=== PATIENT | female | born 1960 | race Two or more races ===

== ENCOUNTER 2016-08-14 11:03 | Emergency (ER) | payer MEDICAID ==
[~2016-08-14] VITALS: Ht 154.9 cm; Wt 83.9 kg
--- NOTE | 2016-08-14 11:30 | NUR ---
BIB RA FROM HOME FOR HYPERGLYCEMIA, PATIENT IS VERBALLY RESPONSIVE, A/OX 4, PLACED IN MONITOR, NO OTHER MEDICAL COMPLAINTS, MD AT BEDSIDE UPON ARRIVAL, WILL CONTINUE TO MONITOR CLOSELY.
[2016-08-14] MEDS ORDERED: IV SET PRIMARY 1 EA INFUS.SET MC ONE ×2 (11:55→12:59)
[2016-08-14] MEDS ORDERED: IV NS 0.9% 1,000 ML ONE (11:55)
[2016-08-14 11:56] LABS: BASOPHILS % (AUTO) 0.6 % (0.0-2.0); EOSINOPHILS # (AUTO) 0.7 /CMM (0.0-0.7); EOSINOPHILS % (AUTO) 9.3 % (0.0-6.0); HEMATOCRIT 44 % (33-45); HEMOGLOBIN 14.4 g/dL (11.5-14.8); LYMPHOCYTES # (AUTO) 1.7 /CMM (0.8-4.8); LYMPHOCYTES % (AUTO) 21.9 % (20.0-44.0); MEAN CORPUSCULAR HEMOGLOBIN 27 PG (26.0-33.0); MEAN CORPUSCULAR HGB CONC 33 g/dl (31.0-36.0); MEAN CORPUSCULAR VOLUME 83 fL (82-100); MONOCYTES # (AUTO) 0.4 /CMM (0.1-1.30); MONOCYTES % (AUTO) 5.3 % (2.0-12.0); NEUTROPHILS # (AUTO) 4.9 /CMM (1.8-8.9); NEUTROPHILS % (AUTO) 62.9 % (43.0-81.0); PLATELET COUNT (AUTO) 219 /CMM (150-450); RDW COEFFICIENT OF VARIATION 12.8 (11.5-15.0); RED BLOOD CELL COUNT(AUTO) 5.32 MIL/uL (4.0-5.2); WHITE BLOOD COUNT (AUTO) 7.8 K/uL (4.3-11.0)
[2016-08-14] MEDS ORDERED: IV NS 0.9% 1,000 ML BAG IV ONE (12:00)
[2016-08-14 12:07] LABS: CALCIUM, SERUM 8.8 mg/dL (8.5-10.1); CREATININE 1.1 mg/dL (0.6-1.3); POTASSIUM 3.9 mmol/L (3.5-5.1)
[2016-08-14 12:19] LABS: INR 1.06 (0.87-1.13)
[2016-08-14 12:22] LABS: APPEARANCE,URINE Clear (CLEAR); BILIRUBIN,URINE Negative (NEGATIVE); BLOOD, URINE Negative Ery/uL (NEGATIVE); COLOR,URINE Yellow (YELLOW); KETONES,URINE 40 (NEGATIVE); LEUKOCYTE ESTERASE ,URINE Negative (NEGATIVE); NITRITE, URINE Negative (NEGATIVE); PROTEIN,URINE 30 mg/dl (NEGATIVE); UGLUCOSE >=1000 mg/dL (NEGATIVE); UROBILINOGEN,URINE 0.2 EU/dL (0.2)
[2016-08-14 12:28] LABS: BACTERIA,URINE None seen /HPF (None Seen); RBC,URINE 0-3 /HPF (0-2); SQUAMOUS EPITHELIAL CELL,UR Few /HPF (None Seen)
[2016-08-14] MEDS ORDERED: IV LR 1000 ML 1,000 ML IV ONE (12:36)
[2016-08-14] MEDS ORDERED: IV LR 1000 ML 1,000 ML ONE (12:59)
[2016-08-14] MEDS ORDERED: INSULIN REGULAR, HUMAN 100 UNIT/ML 10 ML VIAL ONE (12:59)
[2016-08-14] MEDS ORDERED: INSULN 70/30 ASP+PRT/ASP MIX 100 UNIT/ML CARTRIDGE SQ ONE (13:00)
--- NOTE | 2016-08-14 13:32 | NUR ---
INFORMED MD OF BLOOD SUGAR LEVEL
[2016-08-14] MEDS ORDERED: METOCLOPRAMIDE HCL 10 MG/2 ML VIAL ONE (13:43)
[2016-08-14] MEDS ORDERED: FAMOTIDINE (20 MG) 20 MG TABLET ONE (13:43)
[2016-08-14] MEDS ORDERED: MAG HYDROX/AL HYDROX/SIMETH 30 ML UDC ONE (13:44)
[2016-08-14] MEDS ORDERED: METOCLOPRAMIDE HCL 10 MG/2 ML VIAL IV ONE (14:00)
[2016-08-14] MEDS ORDERED: FAMOTIDINE (20 MG) 20 MG TABLET PO ONE (14:00)
[2016-08-14] MEDS ORDERED: MAG HYDROX/AL HYDROX/SIMETH 30 ML UDC PO ONE (14:00)
[2016-08-14 14:07] VITALS: BP 110/60
--- NOTE | 2016-08-14 14:07 | NUR ---
Patient discharged to home in stable condition. Written and verbal after care instructions given. Patient verbalizes understanding of instruction. IV removed. Catheter intact and site benign. Pressure and 4x4 applied to site. No bleeding noted. NAD NOTED UPON DISCHARGE
== END 2016-08-14 14:07 | disposition home or self-care (01) ==
LOC: ER 11:05
DX: E11.649 Type 2 diabetes mellitus with hypoglycemia without coma (principal); R53.1 Weakness
CPT/HCPCS: 36415; 71010-TC; 80048-TC; 81000-TC; 82962-TC; 84484-TC; 85025-TC; 85730-TC; A4606; J1815; J2765; J7030; J7120; Z7610

== ENCOUNTER 2022-06-28 20:15 | Inpatient (IN) | payer MEDICAID ==
[~2022-06-28] VITALS: Ht 162.6 cm; Wt 87.1 kg
[2022-06-29] VITALS: BP 143/47
--- NOTE | 2022-06-29 | NUR ---
ASSURANCE ASSISTANT INITIAL NOTE PT ARRIVED TO UNIT VIA STRETCHER, DIRECT ADMIT FROM ANNONA. PT ADMITTED FOR SEVERE SEPSIS SECONDARY TO CELLULITIS. PT MEDICAL HISTORY INCLUDES DM, CVA THAT OCCURRED WHEN PT WAS 22 YEARS OLD, KIDNEY DISEASE, AND CHOLECYSTECTOMY. PT IS A/O X4, CALM, COOPERATIVE. PT ON ROOM AIR WITH O2SAT OF 92%; PER PT DENIES, FEELING SOB, BREATHING NON-LABORED AND EQUAL, NO SIGNS OF RESP DISTRESS. PT ATTACHED TO EXTERNAL MONITOR, SR WITH BIGEMINY PVCS. SKIN ASSESSED; NOTED TO HAVE CELLULITIS ON BILATERAL ELBOWS, LEFT LEG, SACRUM, AND RIGHT BUTTOCKS; THE RIGHT BUTTOCKS APPEARS RED AND TENDER TO TOUCH. PICTURES TAKEN AND PLACED IN CHART. IV ACCESS ON LFA 20G, INTACT AND PATENT, FLUSHES EASILY WITH NO RESISTANCE. BELONGINGS CHECKED AND ACCOUNTED FOR. BED IN LOWEST POSITION, CALL LIGHT WITHIN REACH, SIDE RAILS UP X2. WILL INITIATE PLAN OF CARE.
[2022-06-29] MEDS ORDERED: ACETAMINOPHEN 325 MG TABLET PO PRN (01:00)
[2022-06-29] MEDS ORDERED: Z GUARD REMEDY 4 OZ OINT TP PRN (01:00)
[2022-06-29] MEDS ORDERED: ONDANSETRON HCL/PF 4 MG/2 ML VIAL IVP PRN (01:00)
[2022-06-29] MEDS ORDERED: DEXTROSE 50%-WATER 50 ML DISP.SYRIN IV PRN (01:00)
[2022-06-29] MEDS ORDERED: PIPERACILLIN /TAZOBACTAM 3.375 G in IV D5W 50 ML IV SCH ×2 (02:00→08:00)
[2022-06-29] MEDS: MORPHINE SULFATE INJ 2 MG/ML DISP.SYRIN IV PRN ×2 (02:13→15:05)
--- NOTE | 2022-06-29 02:14 | NUR ---
RN NOTE PT REPORTS OF 10/10 PAIN ON HER POSTERIOR RIGHT BUTTOCK THAT'S DESCRIBED ACHING. PT ADMINISTERED MORPHINE 2 MG. WILL MONITOR FOR EFFECTIVENESS.
[2022-06-29 02:18] LABS: BASOPHILS % (AUTO) 0.2 % (0.0-2.0); EOSINOPHILS % (AUTO) 1.5 % (0.0-6.0); HEMATOCRIT 35 % (33-45); LYMPHOCYTES # (AUTO) 2.6 K/uL (0.8-4.8); LYMPHOCYTES % (AUTO) 14.7 % (20.0-44.0); MEAN CORPUSCULAR HGB CONC 32 g/dl (31.0-36.0); MEAN CORPUSCULAR VOLUME 75 fL (82-100); MONOCYTES # (AUTO) 0.8 K/uL (0.1-1.30); MONOCYTES % (AUTO) 4.6 % (2.0-12.0); NEUTROPHILS # (AUTO) 14.1 K/uL (1.8-8.9); PLATELET COUNT (AUTO) 316 K/uL (150-450); RED BLOOD CELL COUNT(AUTO) 4.62 MIL/uL (4.0-5.2); WHITE BLOOD COUNT (AUTO) 17.8 K/uL (4.3-11.0)
--- NOTE | 2022-06-29 02:28 | NUR ---
RN NOTE URINE SPECIMEN OBTAINED; LAB CALLED FOR PICK-UP
[2022-06-29 02:35] LABS: ALBUMIN 2.3 g/dL (3.4-5.0); BILIRUBIN,TOTAL 0.3 mg/dL (0.2-1.0); CALCIUM, SERUM 8.8 mg/dL (8.5-10.1); CREATININE 1.2 mg/dL (0.6-1.3); POTASSIUM 4.1 mmol/L (3.5-5.1); TOTAL PROTEIN, SERUM 7.6 g/dL (6.4-8.2)
[2022-06-29] MEDS ORDERED: PIPERACILLIN /TAZOBACTAM 3.375 G VIAL IV ONE (03:01)
[2022-06-29 04:00] VITALS: BP 97/46
--- NOTE | 2022-06-29 07:30 | NUR ---
JEWISH THOUGHT PROFESSOR NOTES RECEIVED PT IN BED, ALERT/AWAKE X 4, ON ROOM AIR, O2 SAT 100 %, NO SOB, NO DISTRESS, RESPIRATION UNLABORED. SR HR 86 ON MONITOR. DENIES CHEST PAIN /DISCOMFORT. IV ACCESS ON LEFT FA G 20 FLUSHES WELL, SITE CLEAR. [facility]. SEE NURSING FLOWSHEET FOR SKIN ISSUES. STATED TENDERNESS ON RT BUTTOCK, POC DISCUSSED AND VERBALIZED UNDERSTANDING. SAFETY MEASURES IN PLACE. BED LOW LOCKED, SR UP X 2, CALL LIGHT WITHIN REACH. WILL CONT TO MONITOR. FOR WOUND CONSULT
--- NOTE | 2022-06-29 07:37 | NUR ---
WAISTLINE JOINER CLOSING NOTE PT REMAINS IN BED, AWAKE, A/O X4, CALM, COOPERATIVE. BLISTER FROM RIGHT BUTTOCK NOTED TO HAVE POPPED WITH BLEEDING. PRESSURE APPLIED, BLEEDING CONTROLLED; MEPILEX APPLIED OVER BUTTOCK. OTHERWISE, NO OTHER CHANGES TO PT'S STATUS. ALL DUE MEDS ADMINISTERED DURING THE NIGHT. GIA ENDORSED TO DAYSHIFT NURSE.
[2022-06-29] MEDS: PANTOPRAZOLE 40 MG TABLET.DR PO SCH (07:53)
[2022-06-29] MEDS: BLOOD SUGAR DIAGNOSTIC 1 EACH STRIP IN SCH ×4 (07:53→22:34)
[2022-06-29 08:00] VITALS: BP 119/58
[2022-06-29] MEDS: VANCOMYCIN 0.75 GM in IV D5W 250 ML IV SCH ×2 (08:04→20:52)
[2022-06-29] MEDS: INSULIN REGULAR, HUMAN 100 UNIT/ML 3 ML VIAL SQ PRN ×4 (08:06→22:29)
[2022-06-29] MEDS: PIPERACILLIN /TAZOBACTAM 3.375 G in IV D5W 100 ML IV SCH ×2 (09:02→17:12)
--- NOTE | 2022-06-29 09:30 | NUR ---
RN NOTES DUE MEDS GIVEN
[2022-06-29] MEDS ORDERED: OMEP20TA20 PO (11:06)
[2022-06-29] MEDS ORDERED: METF-440 PO (11:06)
[2022-06-29] MEDS ORDERED: ROSU5TAB PO (11:06)
[2022-06-29] MEDS ORDERED: GLYB5TAB7 PO (11:06)
[2022-06-29 12:00] VITALS: BP 108/48
--- NOTE | 2022-06-29 12:36 | NUR ---
WOUND CARE CONSULT: PT PRESENTS WITH VERY RED, TENDER AREA WITH BLISTER TO RT BUTTOCK, PRESENT ON ADMISSION. PT STATES WAS INJECTED WITH VITAMIN SHOT BY HER SISTER PRIOR TO ADMISSION. DR SANCHEZ CALLED FOR SURGICAL CONSULT. IN AGREEMENT WITH PLAN OF CARE.
[2022-06-29 16:00] VITALS: BP 112/48
--- NOTE | 2022-06-29 18:26 | NUR ---
PROGRAMMER ENGINEERING AND SCIENTIFIC CLOSING NOTES PT IN BED, ALERT/AWAKE X 4, ON ROOM AIR, O2 SAT 100 %, NO SOB, NO DISTRESS, RESPIRATION UNLABORED. SR HR 80s TO 90s ON MONITOR. DENIES CHEST PAIN /DISCOMFORT. IV ACCESS ON LEFT FA G 20 FLUSHES WELL, SITE CLEAR. AMBULATORY, [facility] DIET. AMBULATORY, BRP. SAFETY MEASURES IN PLACE. BED LOW LOCKED, SR UP X 2, CALL LIGHT WITHIN REACH. ALL NEEDS MET AT THIS TIME. NO OTHER SIGNIFICANT CHANGE IN CONDITION. WILL ENDORSE TO NEXT SHIFT FOR GIA
[2022-06-29 20:00] VITALS: BP 110/56
--- NOTE | 2022-06-29 20:00 | NUR ---
PICTURE HANGER NOTES RECEIVED PT IN BED, ALERT/AWAKE X 4, ON ROOM AIR, O2 SAT 100 %,V/S STABLE NO SOB, NO DISTRESS, RESPIRATION UNLABORED. SR HR 88 ON MONITOR. DENIES CHEST PAIN /DISCOMFORT. IV ACCESS ON LEFT FA G 20 FLUSHES WELL, SITE CLEAR. AMBULATORY, POC DISCUSSED AND VERBALIZED UNDERSTANDING. SAFETY MEASURES IN PLACE. BED LOW LOCKED, SR UP X 2, CALL LIGHT WITHIN REACH. WILL CONT TO MONITOR.
[2022-06-29] MEDS ORDERED: INSULIN GLARGINE, 100 UNIT/ML CARTRIDGE SQ SCH (22:00)
[2022-06-29] MEDS: ZOLPIDEM TARTRATE 10 MG TABLET PO PRN (22:18)
--- NOTE | 2022-06-29 22:37 | NUR ---
senior telecommunications technician notes Blood sugar at 10pm is 384mg/dl pts on po diet ,29 units of lantus and 10 units of regular insulin ginen as ordered and per sliding scale.
[2022-06-30] VITALS: BP 116/79
[2022-06-30] MEDS: PIPERACILLIN /TAZOBACTAM 3.375 G in IV D5W 100 ML IV SCH ×3 (02:34→17:31)
[2022-06-30 04:00] VITALS: BP 126/55
[2022-06-30 06:54] LABS: BASOPHILS % (AUTO) 0.3 % (0.0-2.0); HEMATOCRIT 35 % (33-45); LYMPHOCYTES # (AUTO) 2.3 K/uL (0.8-4.8); LYMPHOCYTES % (AUTO) 15.3 % (20.0-44.0); MEAN CORPUSCULAR HGB CONC 32 g/dl (31.0-36.0); MEAN CORPUSCULAR VOLUME 74 fL (82-100); MONOCYTES # (AUTO) 0.8 K/uL (0.1-1.30); MONOCYTES % (AUTO) 5.8 % (2.0-12.0); NEUTROPHILS % (AUTO) 74.6 % (43.0-81.0); PLATELET COUNT (AUTO) 297 K/uL (150-450); WHITE BLOOD COUNT (AUTO) 14.7 K/uL (4.3-11.0)
--- NOTE | 2022-06-30 06:57 | NUR ---
DENTAL OFFICE MANAGER NOTES PT REMAIN IN BED, ALERT/AWAKE X 4, ON ROOM AIR, O2 SAT 100 %, NO SOB, NO DISTRESS, RESPIRATION UNLABORED. SR HR 86 ON MONITOR. DENIES CHEST PAIN /DISCOMFORT. IV ACCESS ON LEFT FA G 20 FLUSHES WELL, SITE CLEAR. AMBULATORY,POC DISCUSSED AND VERBALIZED UNDERSTANDING. SAFETY MEASURES IN PLACE. BED LOW LOCKED, SR UP X 2, CALL LIGHT WITHIN REACH. WILL ENDORSE TO RN DAY SHIFT FOR CONTINUITY OF CARE.
[2022-06-30 07:09] LABS: CALCIUM, SERUM 8.8 mg/dL (8.5-10.1); CREATININE 1.3 mg/dL (0.6-1.3); PHOSPHORUS 3.2 mg/dL (2.5-4.9); POTASSIUM 3.8 mmol/L (3.5-5.1)
--- NOTE | 2022-06-30 07:20 | NUR ---
PARTS CATALOGUER OPEN NOTES PT REMAIN IN BED, ALERT/AWAKE X 4, ON ROOM AIR, O2 SAT 100 %, NO SOB, NO DISTRESS, RESPIRATION UNLABORED. SR HR 76 ON MONITOR. DENIES CHEST PAIN /DISCOMFORT. IV ACCESS ON LEFT FA G 20 FLUSHES WELL, SITE CLEAR. AMBULATORY,POC DISCUSSED AND VERBALIZED UNDERSTANDING. SAFETY MEASURES IN PLACE. BED LOW LOCKED, SR UP X 2, CALL LIGHT WITHIN REACH. WILL ENDORSE TO RN DAY SHIFT FOR CONTINUITY OF CARE.
[2022-06-30] MEDS: PANTOPRAZOLE 40 MG TABLET.DR PO SCH (07:23)
[2022-06-30] MEDS: BLOOD SUGAR DIAGNOSTIC 1 EACH STRIP IN SCH ×4 (07:23→21:52)
[2022-06-30] MEDS: INSULIN REGULAR, HUMAN 100 UNIT/ML 3 ML VIAL SQ PRN ×4 (07:25→21:56)
[2022-06-30] MEDS: VANCOMYCIN 0.75 GM in IV D5W 250 ML IV SCH ×3 (07:35→20:40)
[2022-06-30 08:00] VITALS: BP 90/62
[2022-06-30] MEDS: glyBURIDE 5 MG TABLET PO SCH (08:07)
[2022-06-30 12:00] VITALS: BP 91/50
[2022-06-30] MEDS ORDERED: LIDOCAINE 2%-EPI 1:100,000 30 ML VIAL TP STA (12:08)
[2022-06-30] MEDS: MORPHINE SULFATE INJ 2 MG/ML DISP.SYRIN IV PRN (13:42)
--- NOTE | 2022-06-30 13:52 | NUR ---
RN note MORPHINE 2 MG IV WAS ADMINISTRED , WHEN AZURE ARCHITECT WILI DRUMMOND WAS PERFIRMING CUT AND DRAINS ABSCSESS OF THE RIGHT BUTTOCK , PATIENT WAS SCEAMING FROM PAIN , I ADMINISTRED MORPHINE , BEFORE SCANING IT .AZURE ARCHITECT MOON MARTÍNEZ
[2022-06-30 16:00] VITALS: BP 86/51
[2022-06-30 16:21] LABS: BILIRUBIN,URINE NEGATIVE (NEGATIVE); COLOR,URINE YELLOW (YELLOW); LEUKOCYTE ESTERASE ,URINE NEGATIVE (NEGATIVE); NITRITE, URINE NEGATIVE (NEGATIVE); PROTEIN,URINE 1+ mg/dl (NEGATIVE); UGLUCOSE NEGATIVE (NEGATIVE); UROBILINOGEN,URINE 0.2 EU/dL (0.2)
[2022-06-30 16:36] LABS: BACTERIA,URINE None seen /HPF (None Seen); WBC,URINE 0-2 /HPF (0-3)
--- NOTE | 2022-06-30 18:37 | NUR ---
OPEN TENTER OPERATOR CLOSING NOTES PT IN BED, ALERT/AWAKE X 4, ON ROOM AIR, O2 SAT 100 %, NO SOB, NO DISTRESS, RESPIRATION UNLABORED. SR HR 80s TO 86s ON MONITOR. DENIES CHEST PAIN /DISCOMFORT. IV ACCESS ON LEFT FA G 20 FLUSHES WELL, SITE CLEAR. AMBULATORY, [facility] DIET. AMBULATORY, BRP.RIGHT BUTTOCK ABSCESS WAS CUT AND DRAINED BY WILI [employer] PROFESSIONAL ORDER TO IRRIGATE WITJ NSS AND PACK WITH KERLIX EVERY SHIFT RECEIVED . ALL MEDICATIONS WERE ADMINISTRED , ALL NEEDS WERE MET SAFETY MEASURES IN PLACE. BED LOW LOCKED, SR UP X 2, CALL LIGHT WITHIN REACH. ALL NEEDS MET AT THIS TIME. WILL ENDORSE TO MAINTENANCE MGR NURSE FOR GIA
--- NOTE | 2022-06-30 19:45 | NUR ---
FILM EDITOR SUPERVISOR NOTES RECEIVED LYING ON BED A/O X4,SPEAK KOSOVAN,DRESSING TO RIGHT BUTTOCKS INTACT AND DRY.SALINE LOCK LFA INTACT AND PATENT.WILL MONITOR FOR PAIN,AMBULATE WITH STEADY GAIT.CALL LIGHT IN REACH,NEEDS ANTICIPATED.
[2022-06-30 20:00] VITALS: BP 112/85
[2022-06-30] MEDS: INSULIN GLARGINE, 100 UNIT/ML CARTRIDGE SQ SCH (21:57)
--- NOTE | 2022-06-30 22:00 | NUR ---
CORRECTIONAL PROGRAM OFFICER NOTES ACCU-CHECK BLOOD SUGAR CHECK 409MG/DL,COVERED WITH HUMULIN R 10UNITS PER SLIDING SCALE AND NOTIFY MD,AWAITING FOR RESPONSE. ALSO GIVEN LANTUS 22 UNITS SCHEDULED HS.
[2022-06-30] MEDS: ZOLPIDEM TARTRATE 10 MG TABLET PO PRN (22:27)
--- NOTE | 2022-06-30 22:27 | NUR ---
ASSISTANT CORPORATE CONTROLLER NOTES C/O INSOMNIA,AMBIEN 10MG PO GIVEN PER PATIENT REQUEST.
--- NOTE | 2022-06-30 22:30 | NUR ---
MANAGER EQUIPMENT NOTES\ IV SITE ON LEFT AC INFILTRATED.NEW SLAINE LOCK INSERTED ON RIGHT FOREARM #20,FLUSHED WITH NS AND KEPT PATENT.
[2022-06-30] MEDS ORDERED: INSULIN REGULAR, HUMAN 100 UNIT/ML 3 ML VIAL SQ ONE (23:00)
--- NOTE | 2022-06-30 23:03 | NUR ---
HEALTH SCIENCE WRITER NOTES GIVEN ANOTHER 5 UNITS OF HUMULIN R,GIVEN SQ ONE TIME ORDER BY HOSPITALIST GM PÉREZ DNP
[2022-07-01] VITALS: BP 116/47
[2022-07-01] MEDS: PIPERACILLIN /TAZOBACTAM 3.375 G in IV D5W 100 ML IV SCH ×3 (02:01→17:17)
[2022-07-01] MEDS: HYDROCODONE/APAP 5/325MG TABLET PO PRN (03:45)
--- NOTE | 2022-07-01 03:45 | NUR ---
STATEMENT DISTRIBUTION CLERK NOTES AWAKE,AMBULATE TO THE RESTROOM,NOTED DRESSING ON RIGHT BUTTOCKS WET ON THE SIDE.TOP DRESSING CHANGED DONE,COVERED WITH ABD.
[2022-07-01 04:00] VITALS: BP 103/63
--- NOTE | 2022-07-01 06:25 | NUR ---
PRECISION LENS CENTERER AND EDGER NOTES SR ON TELE MONITOR.PAIN MANAGEMENT EFFECTIVE,AMBULATE WITH STEADY GAIT.IN NO ACUTE DISTRESS.IV ABX TOLERATED WELL.WILL ENDORSE TO DAY NURSE FOR GIA
[2022-07-01 07:20] LABS: CALCIUM, SERUM 8.6 mg/dL (8.5-10.1); CREATININE 1.2 mg/dL (0.6-1.3); POTASSIUM 3.9 mmol/L (3.5-5.1)
[2022-07-01] MEDS: BLOOD SUGAR DIAGNOSTIC 1 EACH STRIP IN SCH ×4 (07:42→21:13)
[2022-07-01 08:00] VITALS: BP 102/41
[2022-07-01] MEDS: glyBURIDE 5 MG TABLET PO SCH (08:19)
[2022-07-01] MEDS: PANTOPRAZOLE 40 MG TABLET.DR PO SCH (08:19)
[2022-07-01] MEDS: INSULIN REGULAR, HUMAN 100 UNIT/ML 3 ML VIAL SQ PRN ×4 (08:21→21:16)
[2022-07-01] MEDS: VANCOMYCIN 0.75 GM in IV D5W 250 ML IV SCH ×2 (08:52→20:36)
[2022-07-01 12:00] VITALS: BP 106/68
--- NOTE | 2022-07-01 12:58 | NUR ---
PATIENTS FAMILY MEMBERS FOUND MEDICATION IN CUP AT BEDSIDE. MEDICATION IDENTIFIED DIABETA, ORDERED FOR THE PATIENT TO CONTROL BLOOD SUGAR. PROVIDED MEDICATION EDUCATION, AND STRESSED THE IMPORTANCE OF ADHERING TO MEDICATION SCHEDULE TO CONTROL BLOOD SUGAR. PATIENT TOOK MEDICATION. PRIMARY NURSE LINCOLN MICHELLE.
[2022-07-01 16:00] VITALS: BP 108/69
--- NOTE | 2022-07-01 16:14 | NUR ---
RN NOTE PT REQUEST TO LEAVE PACKING INSIDE WOUND AT THIS TIME AND TO ONLY CHANGE OUTER DRESSING NEEDED. DRESSING CDI AT THIS TIME.
--- NOTE | 2022-07-01 19:20 | NUR ---
WIRE LOOP MACHINE OPERATOR opening note Received pt resting in bed, awake, A&Ox3. able to make needs known, breathing even and unlabored, on RA, RFA 20 GA, CDI, pt able to ambulate well to restroom and is pretty independent with ADLS, will continue to monitor
[2022-07-01 20:00] VITALS: BP 143/75
[2022-07-01] MEDS: MORPHINE SULFATE INJ 2 MG/ML DISP.SYRIN IV PRN (20:15)
[2022-07-01] MEDS: INSULIN GLARGINE, 100 UNIT/ML CARTRIDGE SQ SCH (21:16)
[2022-07-02] VITALS (7 sets, daily range): BP systolic 143–156; BP diastolic 75–77
[2022-07-02] MEDS: PIPERACILLIN /TAZOBACTAM 3.375 G in IV D5W 100 ML IV SCH ×3 (02:19→18:09)
--- NOTE | 2022-07-02 06:12 | NUR ---
REDYE HAND closing note Pt resting in bed, awake, A&Ox3. able to make needs known, breathing even and unlabored, on RA, RFA 20 GA, CDI, pt is on ATB tx, tolerating well, all due meds given per MD orders, tolerated well, pt able to ambulate well to restroom and is pretty independent with ADLS, all basic needs met and anticipated, all safety measures in place, call light with in reach, will continue to monitor
[2022-07-02 06:19] LABS: BASOPHILS # (AUTO) 0.1 K/uL (0.0-0.2); BASOPHILS % (AUTO) 0.4 % (0.0-2.0); HEMATOCRIT 36 % (33-45); HEMOGLOBIN 11.5 g/dL (11.5-14.8); LYMPHOCYTES # (AUTO) 3.7 K/uL (0.8-4.8); MEAN CORPUSCULAR HGB CONC 32 g/dl (31.0-36.0); MEAN CORPUSCULAR VOLUME 73 fL (82-100); MONOCYTES # (AUTO) 0.6 K/uL (0.1-1.30); MONOCYTES % (AUTO) 4.8 % (2.0-12.0); NEUTROPHILS # (AUTO) 7.7 K/uL (1.8-8.9); NEUTROPHILS % (AUTO) 59.8 % (43.0-81.0); PLATELET COUNT (AUTO) 387 K/uL (150-450); RED BLOOD CELL COUNT(AUTO) 4.88 MIL/uL (4.0-5.2); WHITE BLOOD COUNT (AUTO) 12.9 K/uL (4.3-11.0)
[2022-07-02 06:43] LABS: CALCIUM, SERUM 9.1 mg/dL (8.5-10.1); CREATININE 1.2 mg/dL (0.6-1.3); POTASSIUM 3.9 mmol/L (3.5-5.1)
--- NOTE | 2022-07-02 07:00 | NUR ---
REGULATORY LEAD OPENING NOTE PATIENT A/A/OX4 ON ROOM AIR AT 98%, NO S/S OF RESPIRATORY DISTRESS NOTED. DENIES PAIN, NO FEVER. AMBULATORY. IV ACCESS INTACT. SAFETY MEASURES IN PLACE. BED LOW AND LOCKED, CALL LIGHT AND TABLE WITHIN REACH. CONT. TO MONITOR.
[2022-07-02] MEDS: BLOOD SUGAR DIAGNOSTIC 1 EACH STRIP IN SCH ×4 (07:30→21:50)
[2022-07-02 07:45] LABS: EOSINOPHILS % (MANUAL) 5 % (0-4); LYMPHOCYTES % (MANUAL) 41 % (16-48); MONOCYTES % (MANUAL) 4 % (0-11.0); NEUTROPHILS % (MANUAL) 50 (42-76)
[2022-07-02] MEDS: INSULIN REGULAR, HUMAN 100 UNIT/ML 3 ML VIAL SQ PRN ×4 (09:33→21:56)
[2022-07-02] MEDS: PANTOPRAZOLE 40 MG TABLET.DR PO SCH (09:44)
[2022-07-02] MEDS: glyBURIDE 5 MG TABLET PO SCH (09:45)
[2022-07-02] MEDS: VANCOMYCIN 0.75 GM in IV D5W 250 ML IV SCH ×2 (13:13→20:13)
--- NOTE | 2022-07-02 19:00 | NUR ---
DATA CONVERSION OPERATOR CLOSING NOTE PATIENT PLEASANT, DENIES PAIN. NO SOB NOTED, NO FEVER. PATIENT INFORMED REGARDING ANTIBIOTICS AND DIABETES CARE. PATIENT VERBALIZED UNDERSTANDING INFORMATION. SAFETY MEASURES IN PLACE. BED TO THE LOWEST POSITION, CALL LIGHT AND TABLE WITHIN REACH. WILL ENDORSE TO THE FOLLOWING NURSE.
--- NOTE | 2022-07-02 19:20 | NUR ---
FURNITURE MECHANIC opening note Received pt resting in bed, awake, A&Ox3. able to make needs known, afebrile, skin warm and dry to touch, breathing even and unlabored, on RA, RFA #20, CDI, pt able to ambulate well to restroom and is pretty independent with ADLS, will continue to monitor
[2022-07-02] MEDS: INSULIN GLARGINE, 100 UNIT/ML CARTRIDGE SQ SCH (21:54)
[2022-07-02] MEDS: HYDROCODONE/APAP 5/325MG TABLET PO PRN (22:17)
[2022-07-03] VITALS: BP 156/75
[2022-07-03] MEDS: PIPERACILLIN /TAZOBACTAM 3.375 G in IV D5W 100 ML IV SCH ×3 (02:18→18:03)
[2022-07-03 04:00] VITALS: BP 160/79
--- NOTE | 2022-07-03 07:00 | NUR ---
TREASURY CONSULTANT closing note Pt awake, resting in bed, afebrile, A&Ox3. able to make needs known, breathing even and unlabored, on RA, RFA 20 GA, CDI, pt is on ATB tx, tolerating well, all due meds given per MD orders, tolerated well, pt able to ambulate well to restroom and is pretty independent with ADLS, all basic needs met and anticipated, all safety measures in place, call light with in reach, will endorse to am nurse
--- NOTE | 2022-07-03 07:15 | NUR ---
CHILD WELFARE SOCIAL WORKER OPENING NOTE PATIENT A/A/OX4 AMBULATING IN THE ROOM. GAIT STEADY, ON ROOM AIR O2 SAT 97% NO S/S OF RESPIRATORY DISTRESS NOTED. IV TO RIGHT HAND INTACT. PATIENT DENIES PAIN AT PRESENT. SAFETY MEASURES IN PLACE. BED LOCKED TO THE LOWEST POSITION. CALL LIGHT AND TABLE WITHIN REACH. CONT. TO MONITOR.
[2022-07-03 07:24] LABS: BASOPHILS % (AUTO) 0.4 % (0.0-2.0); EOSINOPHILS % (AUTO) 6.8 % (0.0-6.0); HEMATOCRIT 33 % (33-45); HEMOGLOBIN 10.4 g/dL (11.5-14.8); LYMPHOCYTES # (AUTO) 2.9 K/uL (0.8-4.8); LYMPHOCYTES % (AUTO) 24.4 % (20.0-44.0); MEAN CORPUSCULAR HGB CONC 32 g/dl (31.0-36.0); MEAN CORPUSCULAR VOLUME 75 fL (82-100); MONOCYTES # (AUTO) 0.9 K/uL (0.1-1.30); MONOCYTES % (AUTO) 7.3 % (2.0-12.0); NEUTROPHILS # (AUTO) 7.3 K/uL (1.8-8.9); NEUTROPHILS % (AUTO) 61.1 % (43.0-81.0); PLATELET COUNT (AUTO) 347 K/uL (150-450); RED BLOOD CELL COUNT(AUTO) 4.35 MIL/uL (4.0-5.2)
[2022-07-03 07:31] LABS: CALCIUM, SERUM 8.8 mg/dL (8.5-10.1); POTASSIUM 3.8 mmol/L (3.5-5.1)
[2022-07-03] MEDS: BLOOD SUGAR DIAGNOSTIC 1 EACH STRIP IN SCH ×4 (07:54→22:48)
[2022-07-03] MEDS: INSULIN REGULAR, HUMAN 100 UNIT/ML 3 ML VIAL SQ PRN ×4 (07:59→22:53)
[2022-07-03 08:00] VITALS: BP 160/79
[2022-07-03] MEDS: VANCOMYCIN 0.75 GM in IV D5W 250 ML IV SCH ×2 (08:03→20:20)
[2022-07-03] MEDS: PANTOPRAZOLE 40 MG TABLET.DR PO SCH (08:04)
[2022-07-03] MEDS: glyBURIDE 5 MG TABLET PO SCH (08:58)
[2022-07-03 13:29] VITALS: BP 160/79
[2022-07-03] MEDS: MORPHINE SULFATE INJ 2 MG/ML DISP.SYRIN IV PRN (14:09)
--- NOTE | 2022-07-03 14:26 | NUR ---
MARKETING AND OUTREACH COORDINATOR NOTE PATIENT C/O OF PAIN WHEN I WAS TRYING TO CHANGE HER WOUND DRESSING. THE WOUND HAS PACKING DRESSING AND I NOTIFIED TO THE CHARGE NURSE SOON, THE PRIMARY DOCTOR AND RIGHT NOW THE PRACTICE NURSE IS HERE TO REVIEW WOUND CARE TREATMENT AND PAIN MANAGEMENT. PATIENT HAD MORPHINE 2MG IV DIRECTED BY . MEDICATION ADMINISTERED BY CHARO SMITH RN. PATIENT INFORMED REGARDING PLAN OF CARE. CONT. TO MONITOR.
[2022-07-03 16:00] VITALS: BP 157/88
--- NOTE | 2022-07-03 19:00 | NUR ---
DENTAL APPLIANCE MECHANIC CLOSING NOTE PATIENT AWAKE, PLEASANT. PATIENT VERBALIZED MORPHINE EFFECTIVE FOR PAIN. ON ROOM AIR, NO S/S OF RESPIRATORY DISTRESS NOTED. IV AT LEFT HAND #22 G NEW TODAY. INTACT. RIGHT BUTTOCKS WOUND TREATMENT DONE BY WOUND DOCTOR. WOUND PACKING REMOVED BY THE DOCTOR. NO PACKING ORDER AT PRESENT. PATIENT INFORMED THAT IS GOING HOME TOMORROW, WILL ARRANGE FOR OUTPATIENT WOUND CARE IN PRIVATE CLINIC. PATIENT VERBALIZED UNDERSTANDING INSTRUCTIONS. PATIENT IS AMBULATORY. I WILL ENDORSE TO THE FOLLOWING NURSE.
--- NOTE | 2022-07-03 19:30 | NUR ---
MS RN OPENING NOTES RECEIVED PATIENT AWAKE IN BED. PATIENT IS A/O TIMES 4. NO PAIN NOTED. NO SOB NOTED. NO DISTRESS NOTED.ON ROOM AIR AND TOLERATING WELL. PATIENT IS AMBULATORY AND ABLE TO MAKE NEEDS KNOWN. IV ACCESS ON THE LEFT HAND # 22 INTACT AND FLUSHING WELL. ALL SAFETY MEASURES IN PLACE. BED LOCKED IN THE LOWEST POSITION. CALL LIGHT AND TAB;E IN EASY REACH. SIDE RAILS UP TIMES 2. WILL CONTINUE TO MONITOR CLOSELY.
[2022-07-03 20:00] VITALS: BP 165/74
--- NOTE | 2022-07-03 22:00 | NUR ---
RN NOTES BLOOD SUGAR CHECK FOR 2199 NOTED 305. LANTUS GIVEN 22 UNITS. REGULAR INSULIN GIVEN 8 UNITS.
[2022-07-03] MEDS: INSULIN GLARGINE, 100 UNIT/ML CARTRIDGE SQ SCH (22:52)
[2022-07-04] VITALS: BP 155/78
[2022-07-04] MEDS: PIPERACILLIN /TAZOBACTAM 3.375 G in IV D5W 100 ML IV SCH ×2 (02:05→09:52)
[2022-07-04 05:59] VITALS: BP 140/86
[2022-07-04] MEDS: BLOOD SUGAR DIAGNOSTIC 1 EACH STRIP IN SCH ×2 (06:01→12:38)
[2022-07-04] MEDS: INSULIN REGULAR, HUMAN 100 UNIT/ML 3 ML VIAL SQ PRN ×2 (06:17→12:35)
[2022-07-04 06:24] LABS: BASOPHILS % (AUTO) 0.4 % (0.0-2.0); EOSINOPHILS % (AUTO) 5.8 % (0.0-6.0); HEMATOCRIT 33 % (33-45); HEMOGLOBIN 10.7 g/dL (11.5-14.8); LYMPHOCYTES # (AUTO) 2.5 K/uL (0.8-4.8); LYMPHOCYTES % (AUTO) 22.7 % (20.0-44.0); MEAN CORPUSCULAR HGB CONC 33 g/dl (31.0-36.0); MEAN CORPUSCULAR VOLUME 74 fL (82-100); MONOCYTES # (AUTO) 0.7 K/uL (0.1-1.30); MONOCYTES % (AUTO) 6.1 % (2.0-12.0); NEUTROPHILS # (AUTO) 7.3 K/uL (1.8-8.9); PLATELET COUNT (AUTO) 341 K/uL (150-450); WHITE BLOOD COUNT (AUTO) 11.2 K/uL (4.3-11.0)
--- NOTE | 2022-07-04 06:37 | NUR ---
MS RN CLOSING NOTES PATIENT AWAKE IN BED. PATIENT IS A/O TIMES 4. NO PAIN NOTED. NO SOB NOTED. NO DISTRESS NOTED.ON ROOM AIR AND TOLERATING WELL. PATIENT IS AMBULATORY AND ABLE TO MAKE NEEDS KNOWN. IV ACCESS ON THE LEFT HAND # 22 INTACT AND FLUSHING WELL. ALL DUE MEDS GIVEN ORDERED. ALL SAFETY MEASURES IN PLACE. BED LOCKED IN THE LOWEST POSITION. CALL LIGHT AND TAB;E IN EASY REACH. SIDE RAILS UP TIMES 2. WILL ENDORSE FOR GIA.
--- NOTE | 2022-07-04 06:54 | NUR ---
RN NOTES BLOOD SUGAR CHECK FOR 0600 AM NOTED 137 . ADMINISTERED INSULIN 2 UNITS.
[2022-07-04 06:58] LABS: CREATININE 1.1 mg/dL (0.6-1.3); POTASSIUM 3.9 mmol/L (3.5-5.1)
--- NOTE | 2022-07-04 07:00 | NUR ---
LITHOGRAPHIC PROOFER OPENING NOTE PATIENT A/A/OX4 DENIES PAIN NO S/S OF RESPIRATORY DISTRESS NOTED. WOUND SITE DRY AT PRESENT. SL AT LEFT HAND #22G. INTACT. PATIENT IS AMBULATORY, STEADY GAIT NOTED. CONT. TO MONITOR.
[2022-07-04 08:00] VITALS: BP 146/66
--- NOTE | 2022-07-04 08:00 | NUR ---
RETAIL TRAINING MANAGER NOTE CALLED TO PHARMACY IF OK TO GIVE VANCOMYCIN AT PRESENT. THE LAST VANCOMYCIN LEVEL WAS ON 07/01/2022. THE LEVEL WAS= 15. THE PHARMACY SAID THAT IS OK TO GIVE IT, PATIENT HAS A GOOD RENAL FUNCTION. THIERNO PALUMBO ADMINISTERED.
[2022-07-04] MEDS: VANCOMYCIN 0.75 GM in IV D5W 250 ML IV SCH (08:02)
[2022-07-04] MEDS: PANTOPRAZOLE 40 MG TABLET.DR PO SCH (08:24)
[2022-07-04] MEDS: glyBURIDE 5 MG TABLET PO SCH (08:24)
[2022-07-04] MEDS: MORPHINE SULFATE INJ 2 MG/ML DISP.SYRIN IV PRN (09:56)
[2022-07-04] MEDS ORDERED: AMOX-430 PO (10:11)
[2022-07-04] MEDS ORDERED: Insulin Glargine,Hum SQ (10:11)
[2022-07-04] MEDS ORDERED: SULF1TAB48 PO (10:11)
[2022-07-04] MEDS ORDERED: PANT40TA49 PO (10:11)
[2022-07-04] MEDS ORDERED: SYRI1DIS86 MC (10:15)
[2022-07-04] MEDS ORDERED: ALCO1EAC MC (10:15)
[2022-07-04] MEDS ORDERED: INSU100V7 SQ (10:15)
[2022-07-04 12:00] VITALS: BP 145/76
[2022-07-04] MEDS: HYDROCODONE/APAP 5/325MG TABLET PO PRN (15:30)
--- NOTE | 2022-07-04 16:30 | NUR ---
HIGH SCHOOL MATH TEACHER DISCHARGE PATIENT IS READY TO BE DISCHARGE PER DOCTOR ORDER. PATIENT IS A/A/0X4, NO S/S OF RESPIRATORY DISTRESS NOTED. 02 SAT IN ROOM AIR 98%, TEMP 98.8 HR 82 RESPIRATION 18 B/P 146/66 DENIES PAIN. NORCO WAS GIVEN PRIOR WOUND CARE WAS EFFECTIVE. PATIENT REFUSED WOUND PACKING. I EXPLAINED TO PATIENT THE PURPOSE OF THE TREATMENT ALSO THE RISK FOR NOT HAVE DONE THE WOUND PACKING. WOUND CARE PERFORMED WITHOUT PACKING. PATIENT TOLERATED WELL. PATIENT VERBALIZED UNDERSTANDING INFORMATION AND INSTRUCTIONS. PATIENT STILL REFUSED WOUND PACKING. [facility] WOUND CARE SUPPLY PROVIDED. IV ACCESS REMOVED CATHETER TIP INTACT PRESSURE DRESSING APPLIED. WOUND PICTURE TAKEN PER HOSPITAL PROTOCOL. PATIENT SIGNED DISCHARGE FORMS AND BELONGINGS FORM. GOING HOME ACCOMPANIED BY PATIENT'S SON AND STAFF BRICK BURNER HEAD VIA W/C.
== END 2022-07-04 18:02 | disposition home health service (06) | DRG 711 ==
LOC: TELE1 22:57 → MEDSG1 23:39 → TELE1 06-29 01:16 → MEDSG1 07-01 13:40
PROVIDERS: ADMIT Nurse Practitioner Family; ATTEND Nurse Practitioner Acute Care
PROC: 0J990ZZ Drainage of Buttock Subcutaneous Tissue and Fascia, Open Approach (ICD-10-PCS; principal; 2022-06-30)
DX: T80.29XA Infection following other infusion, transfusion and therapeutic injection, initial encounter (principal); R65.20 Severe sepsis without septic shock; E87.20 Acidosis, unspecified; E87.1 Hypo-osmolality and hyponatremia; N39.0 Urinary tract infection, site not specified; E11.65 Type 2 diabetes mellitus with hyperglycemia; B96.89 Other specified bacterial agents as the cause of diseases classified elsewhere; A41.9 Sepsis, unspecified organism; J84.10 Pulmonary fibrosis, unspecified; D50.9 Iron deficiency anemia, unspecified; E66.9 Obesity, unspecified; L02.31 Cutaneous abscess of buttock; L03.317 Cellulitis of buttock; Z68.33 Body mass index [BMI] 33.0-33.9, adult; Z90.49 Acquired absence of other specified parts of digestive tract; Z86.73 Personal history of transient ischemic attack (TIA), and cerebral infarction without residual deficits; K44.9 Diaphragmatic hernia without obstruction or gangrene; K57.30 Diverticulosis of large intestine without perforation or abscess without bleeding; N28.1 Cyst of kidney, acquired; Z87.891 Personal history of nicotine dependence; Y84.8 Other medical procedures as the cause of abnormal reaction of the patient, or of later complication, without mention of misadventure at the time of the procedure; Y92.89 Other specified places as the place of occurrence of the external cause
CPT/HCPCS: 36415; 76770-TC; 80048-TC; 80053-TC; 80061-TC; 80202-TC; 81001; 82962-TC; 83735-TC; 84100-TC; 85025-TC; 87040-TC; 87086-TC; A4217; A4223; A6253; A6403; A6407; G0378; J1815; J2270; J2543; J3370; J3490; J7050; J7060